=== PATIENT | male | born 2000 | race Caucasian/White ===

== ENCOUNTER 2024-11-14 20:55 | Emergency (ER) | payer SELFPAY ==
[~2024-11-14 20:55] MED LIST: EPINEPHrine 1 MG/ML SDV ONE; propofoL 1,000 MG/100 ML 100 ML ONE
[2024-11-14] MEDS ORDERED: Sodium Chloride 0.9% 10 ML Syringe FLUSH PRN (20:58)
[2024-11-14 21:05] LABS: BASOPHILS ABSOLUTE AUTO 0.1 K/mm3 (0.0-0.2); BASOPHILS PERCENT AUTO 0.4 % (0.0-1.0); EOSINOPHILS ABSOLUTE AUTO 0.0 K/mm3 (0.0-0.4); EOSINOPHILS PERCENT AUTO 0.3 % (0.0-6.0); IMMATURE GRAN ABSOLUTE AUTO 0.04 K/mm3 (0.00-0.05); IMMATURE GRAN PERCENT AUTO 0.3 % (0.0-0.4); LYMPHOCYTES ABSOLUTE AUTO 4.9 K/mm3 (1.0-4.8); LYMPHOCYTES PERCENT AUTO 42.2 % (24.0-44.0); MEAN PLATELET VOLUME 8.5 fl (9.4-12.4); MONOCYTES ABSOLUTE AUTO 0.6 K/mm3 (0.0-0.8); MONOCYTES PERCENT AUTO 5.1 % (0.0-8.0); NEUTROPHILS ABSOLUTE AUTO 6.0 K/mm3 (1.8-7.7); NEUTROPHILS PERCENT AUTO 51.7 % (41.0-71.0); NRBC ABSOLUTE 0.00 (0.00-0.02); NRBC PERCENT 0.0 % (0.0-0.2); PLATELET COUNT,PLT 392 K/mm3 (150-400); RED BLOOD CELL COUNT 5.10 M/mm3 (4.52-5.90); WHITE BLOOD CELL COUNT,WBC 11.52 K/mm3 (3.9-11.3)
[2024-11-14 21:15] LABS: INR 1.01; PTT,PARTIAL THROMBOPLSTIN TIME 23.8 SECONDS (21.7-31.4)
[2024-11-14 21:24] LABS: A/G RATIO 1.1 (1-2); ALANINE AMINOTRANSFERASE,ALT 30 U/L (16-63); ASPARTATE AMNIOTRANSFERASE,AST 21 U/L (15-37); BILIRUBIN TOTAL 0.7 mg/dL (0.2-1.0); BLOOD UREA NITROGEN,BUN 15 mg/dL (7-18); CARBON DIOXIDE,CO2 19 mEq/L (21-32); CHLORIDE,CL 101 mEq/L (98-107); CREATINE KINASE,CK 202 U/L (39-308); CREATININE 1.4 mg/dL (0.7-1.3); ESTIMATED GFR 73 mL/min (>60); ETHANOL BLOOD MEDICAL 0.19 gm% (0.00); GLUCOSE RANDOM 120 mg/dL (70-99); POTASSIUM,K 3.1 mEq/L (3.5-5.1); PROTEIN TOTAL,TP 7.4 g/dl (6.4-8.2); SODIUM,NA 140 mEq/L (136-145); TROPONIN I HIGH SENSITIVITY < 4 pg/mL (<=76)
[2024-11-14 21:43] LABS: LACTIC ACID 6.9 mmol/L (0.4-2.0)
[2024-11-14] MEDS: Iopamidol 755 Mg/ML 100 ML Bottle IVPUSH ONE (22:02)
[2024-11-14] MEDS ORDERED: Etomidate 2 MG/ML 20 ML SDV ONE (22:10)
[2024-11-14] MEDS ORDERED: Phenylephrine 1% 10 MG/ML SDV ONE (22:10)
[2024-11-15] MEDS: Diphtheria,Pertussis(Acell),Tetanus Vaccine 0.5 ML Syringe IM ONE (01:26)
== END 2024-11-14 22:29 ==
LOC: JD.ED 20:55
DX: S02.91XA Unspecified fracture of skull, initial encounter for closed fracture (principal); S11.93XA Puncture wound without foreign body of unspecified part of neck, initial encounter; S06.6XAA Traumatic subarachnoid hemorrhage with loss of consciousness status unknown, initial encounter; S06.35AA Traumatic hemorrhage of left cerebrum with loss of consciousness status unknown, initial encounter; W34.09XA Accidental discharge from other specified firearms, initial encounter; Y93.89 Activity, other specified
CPT/HCPCS: 12002; 31500; 36415; 51702; 70450; 70496; 70498; 71045; 80053; 80143; 80179; 80307; 82550; 83605; 83690; 83735; 84484; 85025; 85610; 85730; 86850; 86900; 86901; 86922; 90471; 93005; 96365; 99291; G0390; J2371; J3490; Q9967; 93010